=== PATIENT | female | born 1940 | race Caucasian/White ===

== ENCOUNTER 2017-05-05 05:36 | Inpatient (IN) ==
[2017-04-27 13:53] LABS: Basophils # 0.1 10*3/uL (0.0-0.2); Basophils % 0.9 % (0.0-0.8); Eosinophils # 0.2 10*3/uL (0.0-0.87); Eosinophils % 2.5 % (0.00-10.9); Hematocrit 45.6 VOL% (35.7-47.0); Hemoglobin 15.2 GM/DL (12.0-16.0); Immature Granulocytes % 0.2 %; Immature Granulocytes Absolute 0.02 #; Lymphocytes # 2.6 10*3/uL (1.4-4.0); Mean Corpuscular HGB Conc 33.3 GM/DL (32-36); Mean Corpuscular Hemoglobin 30 PG (27-34); Mean Corpuscular Volume 90.1 FL (87-102); Mean Platelet Volume 10.7 FL (9.6-12.0); Monocytes # 0.6 10*3/uL (0.11-0.8); Monocytes % 7.4 % (1.7-12.7); Platelet Count 251 T/CUMM (130-400); Red Blood Count 5.06 MC/CUMM (3.8-5.5); Red Cell Distribution Width 12.6 % (9.3-17.3); White Blood Count 8.5 T/CUMM (4-12)
[2017-04-27 14:04] LABS: Apearance,Urine CLEAR (Clear); Bilirubin,Urine Negative (Negative); Blood, Urine Negative (Negative); Glucose,Urine (UA) Negative (Negative); Ketones,Urine Negative (Negative); Nitrite,Urine Negative (Negative); Protein,Urine Negative; RBC,Urine 2 /HPF (0-4); Urine Color Yellow (Yellow); Urine Specific Gravity 1.005 (1.001-1.035); Urine Urobilinogen < 2.0 EU/DL (0.2-1.0); WBC,Urine <1 /HPF (0-6)
[2017-04-27 14:22] LABS: PT Patient Result 10.5 SECS; Partial Thromboplastin Time 27.9 SECS (0-40)
[2017-04-27 14:24] LABS: Albumin 3.9 G/DL (3.4-5.0); Bilirubin,Total 0.7 MG/DL (0.2-1.0); Calcium 10.5 MG/DL (8.5-10.1); Osmolality,Calculated 278.4 MOS/KG (273-304); Potassium 4.2 MMOL/L (3.5-5.1); Total Protein 8.1 G/DL (6.4-8.3)
--- NOTE | 2017-04-27 16:17 | XRay Report ---
XR chest 2V Date: 04/27/2017 1:08 PM History: Respiratory preoperative evaluation Comparison: None Technique: PA and lateral chest Findings: The heart is normal in size with uncoiling of the aorta. Calcified granulomata/nodes with cardiac fat pads. Unremarkable mediastinum with degenerative changes. Impression: No acute cardiopulmonary pathology identified. PROCEDURE INTERPRETED AT [facility] [place] DEPARTMENT OF RADIOLOGY Final Report Signed by: Dr. Hortencia Funez
[2017-05-05] MEDS ORDERED: CLINDAMYCIN INJ 50 ML IV ONE (05:55)
[2017-05-05] MEDS ORDERED: VANCOMYCIN 1,000 MG VIAL ONE (05:55)
[2017-05-05] MEDS ORDERED: VANCOMYCIN INJ 1,000 MG in SODIUM CHLORIDE 0.9% 250 ML IV ONE (06:00)
[2017-05-05] MEDS ORDERED: CLINDAMYCIN INJ 900 MG in PREMIX 1 EACH IV ONE (06:00)
[2017-05-05] MEDS: LACTATED RINGERS 1,000 ML IV SCH ×2 (06:20→09:40)
--- NOTE | 2017-05-05 07:07 | History and Physical Update ---
History and Physical Update - History and Physical H&P was reviewed, the patient examined and there: are no changes in the patients condition since last H&P was completed.
[2017-05-05] MEDS ORDERED: PROMETHAZINE 25 MG/1 ML VIAL IM PRN (07:11)
[2017-05-05] MEDS ORDERED: BISACODYL 10 MG SUPP RECTAL PRN (07:11)
[2017-05-05] MEDS ORDERED: TEMAZEPAM 7.5 MG CAPSULE PO PRN (07:11)
[2017-05-05] MEDS ORDERED: HYDROmorphone 2 MG/1 ML VIAL IV PRN (07:11)
[2017-05-05] MEDS ORDERED: NALOXONE 0.4 MG/ML VIAL IV PRN ×2 (07:11→09:05)
[2017-05-05] MEDS ORDERED: MAGNESIUM HYDROXIDE SUSP 30 ML UDCUP PO PRN (07:11)
[2017-05-05] MEDS ORDERED: diphenhydrAMINE CAP 25 MG CAPSULE PO PRN (07:11)
[2017-05-05] MEDS ORDERED: LACTULOSE 20 GM/30 ML UDCUP PO PRN (07:11)
[2017-05-05] MEDS ORDERED: MECLIZINE 25 MG TABLET PO PRN (07:14)
[2017-05-05] MEDS ORDERED: TRANEXAMIC ACID 1,000 MG/10 ML VIAL IV ONE (07:17)
[2017-05-05] MEDS ORDERED: HYDROmorphone PCA 30 MG/30 ML SYRINGE IV SCH (07:30)
[2017-05-05] MEDS ORDERED: ROPIVACAINE 0.5% 30 ML VIAL ONE (07:39)
[2017-05-05] MEDS ORDERED: MIDAZOLAM 2 MG/2 ML VIAL ONE (08:49)
[2017-05-05] MEDS ORDERED: ePHEDrine 50 MG/ML AMP ONE (08:50)
[2017-05-05] MEDS ORDERED: fentaNYL 100 MCG/2 ML VIAL ONE ×2 (08:50→09:27)
[2017-05-05] MEDS ORDERED: MORPHINE 10 MG/1 ML VIAL ONE (09:00)
[2017-05-05] MEDS: MORPHINE 10 MG/1 ML VIAL IV PRN ×5 (09:01→09:21)
[2017-05-05] MEDS ORDERED: MORPHINE 2 MG/1 ML SYRINGE IV PRN ×2 (09:06→09:11)
--- NOTE | 2017-05-05 09:12 | XRay Report ---
Right knee, 2 views. Indication: Postoperative from knee replacement. Surgical skin monika and drains project over the soft tissues. There has been a total knee replacement. The hardware is in good position. No evidence of acute fracture or dislocation. There are multiple sclerotic densities in a cluster, all along the medial aspect of the knee joint space. 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 PROCEDURE INTERPRETED AT [facility] [place] DEPARTMENT OF RADIOLOGY Final Report Signed by: Dr. Milena Ying
[2017-05-05] MEDS ORDERED: fentaNYL 100 MCG/2 ML VIAL IV ONE (09:25)
[2017-05-05] MEDS: MORPHINE PCA 30 MG/30 ML SYRINGE IV SCH (10:28)
[2017-05-05] MEDS: DOCUSATE SODIUM 100 MG CAPSULE PO SCH ×2 (11:07→20:04)
[2017-05-05] MEDS: IBUPROFEN 200 MG TABLET PO SCH (11:07)
[2017-05-05] MEDS: TELMISARTAN 40 MG TABLET PO SCH (11:08)
[2017-05-05] MEDS: Magnesium Oxide [Magnesium] 250 MG PO SCH (11:08)
[2017-05-05] MEDS: LATANOPROST 0.005% OPH SOLN 2.5 ML BOTTLE BOTH EYES SCH ×2 (11:08→20:05)
[2017-05-05] MEDS: [UNRECOGNIZED DRUG - OTHER] PO SCH (11:08)
--- NOTE | 2017-05-05 12:56 | Orthopedic Progress Note ---
Orthopedics - Subjective Interval history: Comfortable complaining of nausea good pulse. Discussed up in a.m. Exam - Constitutional Vitals: Period Temp Pulse Resp BP Sys/Worrell Pulse Ox Last 24 Hr 97.2 F-99.0 F 71-93 12-20 131-161/66-94 96-100 Results - Labs CBC & BMP: 04/27/17 13:40 04/27/17 13:40
[2017-05-05] MEDS: ONDANSETRON 4 MG/2 ML VIAL IV PRN ×2 (13:31→17:26)
[2017-05-05] MEDS: CLINDAMYCIN INJ 900 MG in PREMIX 1 EACH IV SCH ×2 (13:36→22:45)
--- NOTE | 2017-05-05 13:46 | Cardiology Consult Note ---
Trip Schneider Lesley, NP, am scribing for, and in the presence of, Cindy Hay MD 13:46. Assessment and Plan - Time spent with patient Time spent with patient: Greater than 30 minutes (Assessment, documentation, and plan of care) (1) Hypertension Status: Chronic Assessment and plan: SEE PLAN OF CARE LISTED BELOW Current Visit: Yes (2) Hyperlipidemia Status: Acute Assessment and plan: SEE PLAN OF CARE LISTED BELOW Current Visit: Yes (3) S/P total knee arthroplasty Status: Acute Assessment and plan: SEE PLAN OF CARE LISTED BELOW Current Visit: Yes History of Present Illness - Data of Consult Patient: known to practice within the last 3 years Consult date: 05/05/17 Requesting Physician: Silvio Avery Jr. 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 Singleton is a 76 year WF, who is status post right TKA today. She is a patient regularly followed by Dr. Zapata for hypertension and hyperlipidemia. The patient's blood pressure and heart rate appear to be well controlled. Patient denies any cardiac complaints such as chest pain or shortness of breath. She is complaining of some nausea, likely from her pain medications. We will make sure that her home medications are continued, and follow throughout hospitalization. CBC and BMP are ordered for the morning. Cardiac history includes hypertension, hyperlipidemia, grade 1 systolic heart murmur. August 2016 the patient underwent stress test, Holter monitor, and EKG. Holter monitor and EKG were negative for dysrhythmia. Stress test did reveal small muscular VSD that was felt to be long-standing and did not require treatment. ASSESSMENT/PLAN: 1. Status post right knee TKA - managed by orthopedic surgeon. 2. Hypertension - resume home medications and make adjustments as needed through hospitalization. 3. Hyperlipidemia - resume home medications and cardiac healthy diet. CC: Silvio Avery Jr., MD - Home Medications and Allergies Home Medications: Home Medications Medication Instructions Recorded Confirmed Type Gluc/Mayo-MSM#1/C/Ankur/Ru/Bor 1 each PO DAILY 04/29/17 05/05/17 History [Osteo Bi-Flex Caplet] Ibuprofen [Advil] 200 mg PO DAILY PRN 04/29/17 05/05/17 History Latanoprost [Latanoprost 0.005 % 1 drop BOTH EYES BID 04/29/17 05/05/17 History Oph Soln] Magnesium Oxide [Magnesium] 250 mg PO DAILY 04/29/17 05/05/17 History Meclizine [Antivert] 25 mg PO TID PRN 04/29/17 05/05/17 History NIFEdipine [Nifedipine ER] 30 mg PO BEDTIME 04/29/17 05/05/17 History Rosuvastatin [Crestor] 20 mg PO MOFR 04/29/17 05/05/17 History Telmisartan [Micardis] 80 mg PO DAILY 04/29/17 05/05/17 History traMADol TAB [Ultram] 50 mg PO Q6H PRN 04/29/17 05/05/17 History Allergies/Adverse Reactions: Allergies Allergy/AdvReac Type Severity Reaction Status Date / Time nebivolol [From Bystolic] Allergy Mild Unknown/Unable Verified 04/27/17 13:07 to obtain nitrofurantoin Allergy Mild Unknown/Unable Verified 04/27/17 13:07 [From Macrobid] to obtain Penicillins Allergy Mild Unknown/Unable Verified 04/27/17 13:07 to obtain Hydromorphone [From Dilaudid] AdvReac Unknown Confusion Verified 05/05/17 09:00 12 point system: reviewed and no additional remarkable complaints except as stated - Constitutional Constitutional: Absent: chills, fatigue, night sweats - EENT Nose, mouth and throat: Absent: dysphagia, headache(s) - Cardiovascular Cardiovascular: Absent: chest pain at rest, chest pain with activity, dyspnea, edema, orthopnea - Respiratory Respiratory: Absent: cough, dyspnea, wheezing - Gastrointestinal Gastrointestinal: Absent: abdominal pain, coffee ground emesis, dysphagia, heartburn - Genitourinary Genitourinary: Absent: difficulty urinating - Neurological Neurological: Absent: behavioral changes, dizziness, frequent falls - Psychiatric Psychiatric: Absent: anxiety, confusion - Endocrine Endocrine: Absent: fatigue - Hematologic/Lymphatic Hematologic/Lymphatic: Absent: easy bleeding, easy bruising Medical,Surgical,& Family Hx - Medical History Cardio: History of: Cardiac Dysrhythmia (murmur), Hypertension, Cardiovascular Problems (DR ZAPATA.) Neurology: History of: Vertigo (x1) No history of: Seizures HEENT: History of: Eye Problem (READING GLASSES), Dental Problems (LOWER DENTURE ), Glaucoma Endocrine: History of: Dyslipidemia Respiratory: No history of: Respiratory Problems (FLU VAC-NO; PNEU VAC-?) Gastrointestinal: History of: GERD (OCCASIONAL) Musculoskeletal: History of: Musculoskeletal Problems (ARTHRITIS.) - Surgical History HEENT Surgeries: Surgical HX of: Eye Surgery (MARIA D CATARACT.) Abdominal Surgeries: Surgical HX of: Appendectomy Reproductive Surgeries: Surgical HX of;: Hysterectomy Orthopedic Surgeries: Surgical HX of;: Total Knee Replacement (RIGHT 04/30) - Family History Family History: Reports;: Family Diabetes (FATHER), Family Heart Disease ( PARENTS), Family Hypertension, Family Stroke (BROTHER) - Social History Smoking Status: Never smoker Frequency of Alcohol Use: None Type of Drug Use: None Physical Examination Vital Signs Temp Pulse Resp BP Pulse Ox 97.2 F L 71 18 147/94 96 05/05/17 06:12 05/05/17 06:12 05/05/17 06:12 05/05/17 06:12 05/05/17 06:12 Exam: General: Appears well with no apparent distress. Pleasant and cooperative. Appears comfortable. HEENT: PERRL, normocephalic, atraumatic. Mucous membranes moist. No jaundice noted. Conjunctiva moist and clear, sclerae anicteric. Neck: No JVD/HJR, no thyromegaly or lymphadenopathy noted. No carotid bruit appreciated. Cardiac: Regular rate and rhythm. Systolic murmur present, no rub or gallop. PMI is nondisplaced. Lungs: Clear to auscultation without accessory muscle use to assist the respiratory pattern. Oxygen in use via nasal cannula. Abdomen: Soft, bowel sounds normoactive. Nontender and nondistended. No abdominal bruit or thrill noted. No masses noted. Musculoskeletal: No fluid collection. Decreased range of motion is noted to right lower extremity, dressing intact. Extremities: No clubbing, cyanosis noted. No edema noted. Upper extremity pulses 2+. Lower extremity pulses 2+. Capillary refill less than 3 seconds. Skin: No unusual lesions or rashes. No skin breakdown appreciated. Neuro: Awake, alert and oriented 3. Moves all extremities well without hemiparesis or paralysis. No essential tremor is appreciated. Result/EKG - Labs CBC & BMP: 04/27/17 13:40 04/27/17 13:40 Lab Results: I have reviewed the past 24 hour labs Labs: Laboratory Results - last 24 hr 05/05/17 06:08 Blood Type O POSITIVE Antibody Screen Negative - Diagnostic Findings Procedure: Chest x-ray: report reviewed by me Jennie, Cindy Hay MD, personally performed the services described in this documentation, ascribed by Maggie Dominique NP in my presence, and it is both accurate and complete .
--- NOTE | 2017-05-05 14:06 | Operative Note ---
DATE: 05/05/2017 PREOPERATIVE DIAGNOSIS: OSTEOARTHRITIS, RIGHT KNEE. POSTOPERATIVE DIAGNOSIS: SAME. OPERATIVE PROCEDURE: RIGHT TOTAL KNEE ([place]). SURGEON: Silvio Avery Jr., MD [place] PHOTOGRAPHER: Dr. Hauser. ANESTHESIA: Spinal. INDICATIONS: A 76-year-old white female with severe osteoarthritis to her right knee. She has maxim ized conservative treatment through the years including multiple injections, medications and walking aids. She presents today for elective right total knee after failing to improve with recent conserva tive treatments. OPERATIVE PROCEDURE: The patient was taken to the operating room and under spinal anesthetic, positi oned in supine position. The right leg positioned, prepped and draped in the usual sterile manner. The limb was elevated, exsanguinated, and the tourniquet inflated to 300 mmHg. She received clindamy katharina preoperatively. A midline incision was made over the anterior aspect of the right knee. Sharp d issection was carried down through skin and subcutaneous tissue. A median parapatellar arthrotomy pe rformed with the knee revealing extensive tricompartmental degenerative changes, multiple large osteo chondral loose bodies. Intramedullary alignment guides were used to make the appropriate cuts about the distal femur and proximal tibia. The femur was sized to a 5 narrow and the tibia to a 6. An 8-m m spacer selected. The patella resurfaced with a 38 button. After removal of trial components, all three components were cemented into place. After cement hardened, the wound was closed over two 1/8t h-inch Hemovac drains in a standard fashion using #1 Vicryl for the arthrotomy, 2-0 Vicryl for the nicolas bcutaneous layer, and monika for skin. The tourniquet deflated during wound closure at 41 minutes.
[2017-05-05] MEDS: FONDAPARINUX 2.5 MG/0.5 ML SYRINGE SUBCUT SCH (17:30)
[2017-05-06 05:43] LABS: Basophils % 0.4 % (0.0-0.8); Eosinophils # 0.2 10*3/uL (0.0-0.87); Eosinophils % 2.4 % (0.00-10.9); Hematocrit 34.4 VOL% (35.7-47.0); Hemoglobin 11.5 GM/DL (12.0-16.0); Immature Granulocytes % 0.6 %; Immature Granulocytes Absolute 0.06 #; Lymphocytes % 9.9 % (21.3-54.2); Mean Corpuscular HGB Conc 33.4 GM/DL (32-36); Mean Corpuscular Hemoglobin 30 PG (27-34); Mean Platelet Volume 10.5 FL (9.6-12.0); Monocytes % 9.6 % (1.7-12.7); Neutrophils # 7.6 10*3/uL (1.4-7.4); Neutrophils % 77.1 % (38.7-73.9); Platelet Count 170 T/CUMM (130-400); Red Blood Count 3.78 MC/CUMM (3.8-5.5); White Blood Count 9.9 T/CUMM (4-12)
[2017-05-06 06:08] LABS: Calcium 9.8 MG/DL (8.5-10.1); Potassium 4.7 MMOL/L (3.5-5.1)
--- NOTE | 2017-05-06 07:46 | Orthopedic Progress Note ---
Orthopedics - Subjective Interval history: Pain control fair neurovascular intact drain removed ready to start PT H&H stable. Exam - Constitutional Vitals: Period Temp Pulse Resp BP Sys/Worrell Pulse Ox Last 24 Hr 97.3 F-99.0 F 75-93 12-20 131-161/59-84 94-100 Results - Labs CBC & BMP: 05/06/17 05:28 05/06/17 05:28
[2017-05-06] MEDS: TELMISARTAN 40 MG TABLET PO SCH (08:39)
[2017-05-06] MEDS: Magnesium Oxide [Magnesium] 250 MG PO SCH (08:39)
[2017-05-06] MEDS: [UNRECOGNIZED DRUG - OTHER] PO SCH (08:40)
[2017-05-06] MEDS: LATANOPROST 0.005% OPH SOLN 2.5 ML BOTTLE BOTH EYES SCH ×2 (08:40→20:26)
[2017-05-06] MEDS: DOCUSATE SODIUM 100 MG CAPSULE PO SCH ×2 (08:41→20:26)
[2017-05-06] MEDS: IBUPROFEN 200 MG TABLET PO SCH (08:41)
[2017-05-06] MEDS: MORPHINE PCA 30 MG/30 ML SYRINGE IV SCH (08:42)
[2017-05-06] MEDS: ONDANSETRON 4 MG/2 ML VIAL IV PRN (08:43)
[2017-05-06] MEDS: FONDAPARINUX 2.5 MG/0.5 ML SYRINGE SUBCUT SCH (17:09)
--- NOTE | 2017-05-06 17:58 | Cardiology Progress Note ---
Trip Schneider Lesley, MAJO, am scribing for, and in the presence of, Cindy Hay MD 17:58. 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 Singleton is a 76 year WF, who is status post right TKA today. She is a patient regularly followed by Dr. Zapata for hypertension and hyperlipidemia. August 2016 the patient underwent stress test, Holter monitor, and EKG. Holter monitor and EKG were negative for dysrhythmia. Stress test did reveal small muscular VSD that was felt to be long-standing and did not require treatment. MAY 06, 2017 UPDATE: The patient is seen lying in bed with some complaints of discomfort about the right knee postoperatively. Vital signs reviewed and remain stable. Patient denies complaints of chest pain or shortness of breath. Labs reviewed today, H&H noted. The patient to start PT today. We will continue to follow patient ASSESSMENT/PLAN: 1. Status post right knee TKA - managed by orthopedic surgeon. 2. Hypertension - resume home medications and adjust meds as needed. Currently acceptable, will continue to follow. 3. Hyperlipidemia - resume home medications and cardiac healthy diet. Exam (Progress Note) - Constitutional Vitals: Period Temp Pulse Resp BP Sys/Worrell Pulse Ox Last 24 Hr 97.3 F-98.7 F 76-93 16-20 133-159/59-79 92-100 Exam: General: Appears well with no apparent distress. Pleasant and cooperative. Appears comfortable. HEENT: PERRL, normocephalic, atraumatic. Mucous membranes moist. No jaundice noted. Conjunctiva moist and clear, sclerae anicteric. Neck: No JVD/HJR, no thyromegaly or lymphadenopathy noted. No carotid bruit appreciated. Cardiac: Regular rate and rhythm. No murmur rub or gallop. PMI is nondisplaced. Lungs: Clear to auscultation without accessory muscle use to assist the respiratory pattern. Oxygen in use via nasal cannula. Abdomen: Soft, bowel sounds normoactive. Nontender and nondistended. No abdominal bruit or thrill noted. No masses noted. Musculoskeletal: Decreased range of motion is noted to right lower extremity, dressing intact. Extremities: No clubbing, cyanosis noted. No edema noted. Upper extremity pulses 2+. Lower extremity pulses 2+. Capillary refill less than 3 seconds. Skin: No unusual lesions or rashes. No skin breakdown appreciated. Neuro: Awake, alert and oriented 3. Moves all extremities well without hemiparesis or paralysis. No essential tremor is appreciated. Result/EKG - Labs CBC & BMP: 05/06/17 05:28 05/06/17 05:28 Lab Results: I have reviewed the past 24 hour labs Labs: Laboratory Results - last 24 hr 05/06/17 05/06/17 05:28 05:28 WBC 9.9 RBC 3.78 L Hgb 11.5 L Hct 34.4 L MCV 91.0 MCH 30 MCHC 33.4 RDW 13.0 Plt Count 170 MPV 10.5 Neut % (Auto) 77.1 H Lymph % (Auto) 9.9 L Leslie % (Auto) 9.6 Eos % (Auto) 2.4 Baso % (Auto) 0.4 Neut # (Auto) 7.6 H Lymph # (Auto) 1.0 L Leslie # (Auto) 1.0 H Eos # (Auto) 0.2 Baso # (Auto) 0.0 Immature Gran % 0.6 Nucleated RBC % 0.0 Immature Gran # 0.06 Nucleated RBCs # 0.00 Immature Plt Fraction 0.0 Sodium 136 Potassium 4.7 Chloride 102 Carbon Dioxide 29 Anion Gap 9.7 BUN 14 Creatinine 0.80 GFR Calculation 83 BUN/Creatinine Ratio 17.00 Glucose 134 H Calculated Osmolality 274.0 Calcium 9.8 Satnam Schneider Jennifer, MD, personally performed the services described in this documentation, ascribed by Maggie Dominique NP in my presence, and it is both accurate and complete [id number] .
--- NOTE | 2017-05-06 18:21 | Pathology Report from [facility] ---
[facility] [facility] [place] : [id number] PATIENT NAME : Madisyn Basurto ORDERING DR : JAMES SEVERINO JR, MD CLINICAL HX: Right knee osteoarthritis POST-OP DX: Same SPECIMEN INFO: Right knee bone and tissue GROSS DESCRIPTION: The specimen in formalin labeled MADISYN BASURTO/RIGHT KNEE consists of an aggregate soft tissue and cartilage measuring 14.0 x 6.5 cm. The articular surfaces are focally degenerative with large area of subchondral eburnation seen. Manager Cardiac tissue submitted in one cassette. DIAGNOSIS FOR MADISYN BASURTO: RIGHT KNEE, TOTAL REPLACEMENT: Bone and cartilage with reactive and degenerative repair, consistent with osteoarthritis. COLLECTED DATE: 05/05/2017 [facility] [place] [facility] [place] DATE: 05/06/2017 ELECTRONICALLY SIGNED BY: Nelly Jordan M.D. 05/06/2017 - 13:53:00 [facility]
[2017-05-07 06:29] LABS: Basophils % 0.3 % (0.0-0.8); Eosinophils # 0.2 10*3/uL (0.0-0.87); Eosinophils % 1.9 % (0.00-10.9); Hematocrit 31.9 VOL% (35.7-47.0); Hemoglobin 11.1 GM/DL (12.0-16.0); Immature Granulocytes % 0.8 %; Immature Granulocytes Absolute 0.08 #; Lymphocytes # 1.1 10*3/uL (1.4-4.0); Mean Corpuscular HGB Conc 34.8 GM/DL (32-36); Mean Corpuscular Hemoglobin 31 PG (27-34); Mean Corpuscular Volume 89.4 FL (87-102); Mean Platelet Volume 10.8 FL (9.6-12.0); Monocytes # 0.7 10*3/uL (0.11-0.8); Monocytes % 6.3 % (1.7-12.7); Neutrophils # 8.2 10*3/uL (1.4-7.4); Neutrophils % 79.7 % (38.7-73.9); Platelet Count 172 T/CUMM (130-400); Red Blood Count 3.57 MC/CUMM (3.8-5.5); Red Cell Distribution Width 12.8 % (9.3-17.3); White Blood Count 10.3 T/CUMM (4-12)
[2017-05-07] MEDS: DOCUSATE SODIUM 100 MG CAPSULE PO SCH ×2 (09:21→21:25)
[2017-05-07] MEDS: IBUPROFEN 200 MG TABLET PO SCH (09:21)
[2017-05-07] MEDS: TELMISARTAN 40 MG TABLET PO SCH (09:21)
[2017-05-07] MEDS: Magnesium Oxide [Magnesium] 250 MG PO SCH (09:22)
[2017-05-07] MEDS: LATANOPROST 0.005% OPH SOLN 2.5 ML BOTTLE BOTH EYES SCH ×2 (09:22→21:28)
[2017-05-07] MEDS: [UNRECOGNIZED DRUG - OTHER] PO SCH (09:22)
--- NOTE | 2017-05-07 13:23 | Orthopedic Progress Note ---
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
--- NOTE | 2017-05-07 18:02 | Cardiology Progress Note ---
Trip Schneider Lesley, MAJO, am scribing for, and in the presence of, Cindy Hay MD 18:02. 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 Singleton is a 76 year WF, who is status post right TKA today. She is a patient regularly followed by Dr. Zapata for hypertension and hyperlipidemia. August 2016 the patient underwent stress test, Holter monitor, and EKG. Holter monitor and EKG were negative for dysrhythmia. Stress test did reveal small muscular VSD that was felt to be long-standing and did not require treatment. MAY 07, 2017 UPDATE: Patient sitting up in chair, continues complaining of nausea. She reports she attempted to walk this morning but became extremely nauseated. Labs reviewed today, hemoglobin and hematocrit remained stable at 11 and 32 respectively. Vital signs remained stable. Oxygen continuous at 2 L by nasal cannula. Oxygen saturation 92. She has not developed any chest pain or shortness of breath. ASSESSMENT/PLAN: 1. Status post right knee TKA - managed by orthopedic surgeon. 2. Hypertension -well-controlled. 3. Hyperlipidemia - resume home medications and cardiac healthy diet. The patient reports that she will be discharged either tomorrow or the following day. We will sign off. Please reconsult for any acute cardiac changes. Exam (Progress Note) - Constitutional Vitals: Period Temp Pulse Resp BP Sys/Worrell Pulse Ox Last 24 Hr 97.0 F-99.7 F 79-92 16-20 117-145/51-61 90-95 Exam: General: Appears well with no apparent distress. Pleasant and cooperative. Appears comfortable. HEENT: PERRL, normocephalic, atraumatic. Mucous membranes moist. No jaundice noted. Conjunctiva moist and clear, sclerae anicteric. Neck: No JVD/HJR, no thyromegaly or lymphadenopathy noted. No carotid bruit appreciated. Cardiac: Regular rate and rhythm. No murmur rub or gallop. PMI is nondisplaced. Lungs: Clear to auscultation bilaterally without accessory muscle use to assist the respiratory pattern. Oxygen in use via nasal cannula. Abdomen: Soft, bowel sounds normoactive. Nontender and nondistended. No abdominal bruit or thrill noted. No masses noted. Musculoskeletal: ] Decreased range of motion is noted to right lower extremity, dressing intact. Extremities: No clubbing, cyanosis noted. No edema noted. Upper extremity pulses 2+. Lower extremity pulses 2+. Capillary refill less than 3 seconds. Skin: No unusual lesions or rashes. No skin breakdown appreciated. Neuro: Awake, alert and oriented 3. Moves all extremities well without hemiparesis or paralysis. No essential tremor is appreciated. Result/EKG - Labs CBC & BMP: 05/07/17 06:00 05/06/17 05:28 Lab Results: I have reviewed the past 24 hour labs Labs: Laboratory Results - last 24 hr 05/07/17 06:00 WBC 10.3 RBC 3.57 L Hgb 11.1 L Hct 31.9 L MCV 89.4 MCH 31 MCHC 34.8 RDW 12.8 Plt Count 172 MPV 10.8 Neut % (Auto) 79.7 H Lymph % (Auto) 11.0 L Luce % (Auto) 6.3 Eos % (Auto) 1.9 Baso % (Auto) 0.3 Neut # (Auto) 8.2 H Lymph # (Auto) 1.1 L Luce # (Auto) 0.7 Eos # (Auto) 0.2 Baso # (Auto) 0.0 Immature Gran % 0.8 Nucleated RBC % 0.0 Immature Gran # 0.08 Nucleated RBCs # 0.00 Immature Plt Fraction 0.0 Satnam Schneider Jennifer, MD, personally performed the services described in this documentation, ascribed by Maggie Dominique NP in my presence, and it is both accurate and complete 802 .
[2017-05-07] MEDS: FONDAPARINUX 2.5 MG/0.5 ML SYRINGE SUBCUT SCH (18:14)
[2017-05-08 05:51] LABS: Basophils % 0.3 % (0.0-0.8); Eosinophils # 0.4 10*3/uL (0.0-0.87); Hematocrit 31.1 VOL% (35.7-47.0); Hemoglobin 10.5 GM/DL (12.0-16.0); Immature Granulocytes % 0.5 %; Immature Granulocytes Absolute 0.04 #; Lymphocytes # 1.4 10*3/uL (1.4-4.0); Lymphocytes % 16.2 % (21.3-54.2); Mean Corpuscular HGB Conc 33.8 GM/DL (32-36); Mean Corpuscular Hemoglobin 31 PG (27-34); Mean Corpuscular Volume 91.2 FL (87-102); Mean Platelet Volume 11.3 FL (9.6-12.0); Monocytes # 0.8 10*3/uL (0.11-0.8); Monocytes % 9.5 % (1.7-12.7); Neutrophils % 68.5 % (38.7-73.9); Platelet Count 178 T/CUMM (130-400); Red Blood Count 3.41 MC/CUMM (3.8-5.5); Red Cell Distribution Width 12.9 % (9.3-17.3); White Blood Count 8.8 T/CUMM (4-12)
[2017-05-08 06:21] LABS: Calcium 9.9 MG/DL (8.5-10.1); Magnesium 2.4 MG/DL (1.8-2.4); Osmolality,Calculated 275.7 MOS/KG (273-304); Potassium 4.5 MMOL/L (3.5-5.1)
[2017-05-08] MEDS: DOCUSATE SODIUM 100 MG CAPSULE PO SCH ×2 (08:12→21:16)
[2017-05-08] MEDS: IBUPROFEN 200 MG TABLET PO SCH (08:12)
[2017-05-08] MEDS: TELMISARTAN 40 MG TABLET PO SCH (08:13)
--- NOTE | 2017-05-08 08:44 | Orthopedic Progress Note ---
Orthopedics - Subjective Interval history: Improving leg is soft nontender minimal swelling. PT progressing nicely. Discussed discharge plan possible home this afternoon or tomorrow after PT home health home PT have been set up. Instructed Exam - Constitutional Vitals: Period Temp Pulse Resp BP Sys/Worrell Pulse Ox Last 24 Hr 96.7 F-98.7 F 76-80 16-19 108-130/51-60 94-95 Results - Labs CBC & BMP: 05/08/17 04:39 05/08/17 04:39 Specialty Discharge - Follow Up or Referrals Follow up with: Silvio Avery Jr., MD [Physician] -
--- NOTE | 2017-05-08 08:47 | Discharge Summary ---
Hospital Course - Hospital Course Hospital Course: Admitted for elective right total knee discharged home with home health Diagnosis - Discharge Diagnosis (1) Osteoarthritis of right knee Status: Acute Specialty Discharge - Follow Up or Referrals Follow up with: Silvio Avery Jr., MD [Physician] - Discharge Plan - Discharge Data Disposition: Home Health Service Condition at Discharge: Stable Discharge Diet: advance to your usual diet Activity: as per physical therapy, increase activity as tolerated Hygiene: may shower, keep area(s) dry Weight Bearing at Discharge: weight bear as tolerated Driving: not for (While taking narcotics) - Discharge Medications New HYDROcodone/ACETAMIN 7.5-325 [[place] 7.5-325] 1 tablet PO Q4H PRN #30 tablet PRN Reason: Pain Moderate (4-7) Continue NIFEdipine [Nifedipine ER] 30 mg PO BEDTIME Gluc/Mayo-MSM#1/C/Ankur/Ru/Bor [Osteo Bi-Flex Caplet] 1 each PO DAILY Meclizine [Antivert] 25 mg PO TID PRN PRN Reason: Dizziness Rosuvastatin [Crestor] 20 mg PO MOFR Magnesium Oxide [Magnesium] 250 mg PO DAILY Ibuprofen [Advil] 200 mg PO DAILY PRN PRN Reason: Pain traMADol TAB [Ultram] 50 mg PO Q6H PRN PRN Reason: Pain Telmisartan [Micardis] 80 mg PO DAILY Latanoprost [Latanoprost 0.005 % Oph Soln] 1 drop BOTH EYES BID - Follow Up or Referral Follow Up: Silvio Avery Jr., MD [Physician] - - Forms/Instructions Instructions: Total Knee Replacement (DC) Additional Discharge Instructions: Discharged home with home health services. [place] for pain aspirin once daily PT per protocol weightbearing as tolerated CPM walker bedside commode. Mercedes to be removed and wound Steri-Stripped May 19. Follow-up 4 weeks Exam - Constitutional Vitals: Period Temp Pulse Resp BP Sys/[place] Pulse Ox Last 24 Hr 96.7 F-98.7 F 76-80 16-19 108-130/51-60 94-95 Discharge Results Labs on day of discharge: Labs from last 24 hours 05/08/17 05/08/17 04:39 04:39 WBC 8.8 RBC 3.41 L Hgb 10.5 L Hct 31.1 L MCV 91.2 MCH 31 MCHC 33.8 RDW 12.9 Plt Count 178 MPV 11.3 Neut % (Auto) 68.5 Lymph % (Auto) 16.2 L [place] % (Auto) 9.5 Eos % (Auto) 5.0 Baso % (Auto) 0.3 Neut # (Auto) 6.0 Lymph # (Auto) 1.4 [place] # (Auto) 0.8 Eos # (Auto) 0.4 Baso # (Auto) 0.0 Immature Gran % 0.5 Nucleated RBC % 0.0 Immature Gran # 0.04 Nucleated RBCs # 0.00 Immature Plt Fraction 0.0 Sodium 138 Potassium 4.5 Chloride 102 Carbon Dioxide 30 Anion Gap 10.5 BUN 14 Creatinine 0.80 GFR Calculation 83 BUN/Creatinine Ratio 17.00 Glucose 106 Calculated Osmolality 275.7 Calcium 9.9 Magnesium 2.4 DS: Provider Date of admission: 05/05/17 07:11 Primary care physician: Henry Zapata MD Attending physician on admission: Silvio Avery Jr., MD Consults: 05/05/17 07:11 Consult to Case Mgmt/Social Srvs [CONS] Routine Reason for Case Mgmt/Social Srvs: Rehab Home Health Equipment Consult Comment: CPM machine deliver to Pt's room before she is D/C'd home. Consult to Occupational Therapy [CONS] Routine Reason for Occupational Therapy: Evaluate and Treat Consult Comment: ADL's Consult to Physical Therapy [CONS] Routine Reason for Physical Therapy: Evaluate and Treat Gait Training 05/05/17 07:13 Consult to Physician [CONS] Routine Comment: Consulting Provider: Henry Zapata Consulting Provider Notified: Yes When should Consulting Provider be notified: Now Person Notified: [email or web address] Date Notified: 05/05/17 Time Notified: 10:05/06/17 08:08 Consult to Physical Therapy [CONS] Routine Reason for Physical Therapy: Other Consult Comment: Deliver Standard Walker to Patient's room before D/C home f/ rehab. Discharging clinician: Silvio Avery Jr., MD
[2017-05-08] MEDS ORDERED: ROSUVASTATIN 20 MG TABLET PO SCH (09:00)
[2017-05-08] MEDS: ONDANSETRON 4 MG/2 ML VIAL IV PRN (12:13)
[2017-05-08] MEDS: [UNRECOGNIZED DRUG - OTHER] PO SCH (12:18)
[2017-05-08] MEDS: Magnesium Oxide [Magnesium] 250 MG PO SCH (12:18)
[2017-05-08] MEDS: FONDAPARINUX 2.5 MG/0.5 ML SYRINGE SUBCUT SCH (17:37)
[2017-05-08] MEDS: LATANOPROST 0.005% OPH SOLN 2.5 ML BOTTLE BOTH EYES SCH ×2 (21:16→21:18)
[2017-05-09] MEDS: IBUPROFEN 200 MG TABLET PO SCH (06:42)
[2017-05-09 07:54] VITALS: BP 112/61
[2017-05-09] MEDS: LATANOPROST 0.005% OPH SOLN 2.5 ML BOTTLE BOTH EYES SCH (08:58)
[2017-05-09] MEDS: DOCUSATE SODIUM 100 MG CAPSULE PO SCH (09:01)
--- NOTE | 2017-05-09 10:05 | Orthopedic Progress Note ---
Orthopedics - Subjective Interval history: She is alert, oriented. Labs are stable. Incision looks good without erythema or significant drainage. Her discharge arrangements have been made. Rec: Ok for discharge from orthopaedic standpoint Exam - Constitutional Vitals: Period Temp Pulse Resp BP Sys/[place] Pulse Ox Last 24 Hr 96.3 F-98.8 F 73-80 16-20 105-130/53-61 92-95 Results - Labs CBC & BMP: 05/08/17 04:39 05/08/17 04:39 Specialty Discharge - Follow Up or Referrals Follow up with: Silvio Avery Jr., MD [Physician] - 06/08/17 9:00 am
[2017-05-09] MEDS: Magnesium Oxide [Magnesium] 250 MG PO SCH (10:38)
[2017-05-09] MEDS: TELMISARTAN 40 MG TABLET PO SCH (10:38)
[2017-05-09] MEDS: [UNRECOGNIZED DRUG - OTHER] PO SCH (10:39)
== END 2017-05-09 11:25 | disposition home health service (06) | DRG 470 ==
LOC: N.SDSINP 05:36 → N.3E 08:45
PROVIDERS: ADMIT Orthopaedic Surgery; ATTEND Orthopaedic Surgery

== ENCOUNTER 2017-08-22 20:54 | Inpatient (IN) ==
[~2017-08-22 20:54] MED LIST: HEPARIN 5,000 UNIT/1 ML VIAL ONE; NITROGLYCERIN 2% OINT 1 INCH/GM PACK TOP ONE; TICAGRELOR 90 MG TABLET ONE
[2017-08-22] MEDS ORDERED: ONDANSETRON 4 MG/2 ML VIAL ONE (20:55)
[2017-08-22] MEDS ORDERED: HEPARIN/NACL 0.9% 2 UNITS/ML 2,000 ML IV ONE (21:04)
[2017-08-22] MEDS ORDERED: LIDOCAINE 2%/EPI 20 ML VIAL ONE (21:04)
[2017-08-22] MEDS ORDERED: fentaNYL 100 MCG/2 ML VIAL ONE (21:22)
[2017-08-22] MEDS ORDERED: MORPHINE 10 MG/1 ML VIAL ONE (21:24)
[2017-08-22 21:25] LABS: Basophils # 0.1 10*3/uL (0.0-0.2); Basophils % 0.5 % (0.0-0.8); Eosinophils # 0.1 10*3/uL (0.0-0.87); Eosinophils % 0.6 % (0.00-10.9); Hematocrit 39.3 VOL% (35.7-47.0); Hemoglobin 13.4 GM/DL (12.0-16.0); Immature Granulocytes % 0.6 %; Lymphocytes # 3.6 10*3/uL (1.4-4.0); Lymphocytes % 22.6 % (21.3-54.2); Mean Corpuscular HGB Conc 34.1 GM/DL (32-36); Mean Corpuscular Hemoglobin 29 PG (27-34); Mean Corpuscular Volume 84.7 FL (87-102); Monocytes # 0.8 10*3/uL (0.11-0.8); Monocytes % 5.1 % (1.7-12.7); Neutrophils # 11.2 10*3/uL (1.4-7.4); Neutrophils % 70.6 % (38.7-73.9); Platelet Count 304 T/CUMM (130-400); Red Blood Count 4.64 MC/CUMM (3.8-5.5); Red Cell Distribution Width 13.6 % (9.3-17.3); White Blood Count 15.9 T/CUMM (4-12)
[2017-08-22] MEDS ORDERED: HEPARIN 5,000 UNIT/1 ML VIAL ONE (21:28)
[2017-08-22] MEDS ORDERED: TIROFIBAN 5,000 MCG/100 ML PREMIX IV ONE (21:29)
[2017-08-22 21:35] LABS: PT Patient Result 10.7 SECS; Partial Thromboplastin Time 26.9 SECS (0-40)
[2017-08-22 21:53] LABS: Alanine Aminotransferase 15 U/L (13-56); Albumin 3.5 G/DL (3.4-5.0); Alkaline Phosphatase 87 U/L (45-117); Aspartate Amino Transferase 13 U/L (0-37); Blood Urea Nitrogen 13 MG/DL (7-18); Calcium 10.3 MG/DL (8.5-10.1); Glucose 257 MG/DL (74-106); Osmolality,Calculated 281.8 MOS/KG (273-304); Potassium 4.2 MMOL/L (3.5-5.1); Sodium 137 MMOL/L (136-145); Total Protein 7.2 G/DL (6.4-8.3); Troponin I Only 0.018 NG/ML (0.00-0.045)
[2017-08-22] MEDS ORDERED: TIROFIBAN 5,000 MCG/100 ML PREMIX IV SCH (21:53)
[2017-08-22] MEDS ORDERED: METOPROLOL TARTRATE 5 MG/5 ML VIAL IV ONE (21:58)
[2017-08-22] MEDS ORDERED: NITROGLYCERIN SL 0.4 MG TABLET SL PRN (22:19)
[2017-08-22] MEDS ORDERED: fentaNYL 100 MCG/2 ML VIAL IV PRN (22:19)
[2017-08-22] MEDS ORDERED: ONDANSETRON 4 MG/2 ML VIAL IV PRN (22:19)
[2017-08-22] MEDS ORDERED: MORPHINE 2 MG/1 ML SYRINGE IV PRN (22:19)
[2017-08-22] MEDS ORDERED: SODIUM CHLORIDE 0.45% 1,000 ML IV SCH (22:30)
[2017-08-22] MEDS: METOPROLOL TARTRATE 50 MG TABLET PO SCH (23:33)
[2017-08-23 06:09] LABS: Blood Urea Nitrogen 14 MG/DL (7-18); CKMB % 13.5 %; Glucose 169 MG/DL (74-106); Osmolality,Calculated 277.8 MOS/KG (273-304); Potassium 4.8 MMOL/L (3.5-5.1); Sodium 137 MMOL/L (136-145)
[2017-08-23 06:10] LABS: Troponin I Only > 40.000 NG/ML (0.00-0.045)
[2017-08-23 06:11] LABS: Basophils % 0.1 % (0.0-0.8); Hematocrit 37.8 VOL% (35.7-47.0); Hemoglobin 12.7 GM/DL (12.0-16.0); Immature Granulocytes % 0.5 %; Immature Granulocytes Absolute 0.07 #; Lymphocytes # 0.9 10*3/uL (1.4-4.0); Lymphocytes % 6.1 % (21.3-54.2); Mean Corpuscular HGB Conc 33.6 GM/DL (32-36); Mean Corpuscular Hemoglobin 29 PG (27-34); Mean Corpuscular Volume 85.1 FL (87-102); Mean Platelet Volume 11.1 FL (9.6-12.0); Monocytes # 0.8 10*3/uL (0.11-0.8); Neutrophils # 13.3 10*3/uL (1.4-7.4); Neutrophils % 88.3 % (38.7-73.9); Platelet Count 291 T/CUMM (130-400); Red Blood Count 4.44 MC/CUMM (3.8-5.5); Red Cell Distribution Width 13.8 % (9.3-17.3); White Blood Count 15.1 T/CUMM (4-12)
[2017-08-23] MEDS ORDERED: traMADol 50 MG TABLET PO PRN (07:54)
[2017-08-23] MEDS ORDERED: LISINOPRIL 2.5 MG TABLET PO SCH (09:00)
[2017-08-23] MEDS ORDERED: Magnesium Oxide [Magnesium] 250 MG PO SCH (09:00)
[2017-08-23] MEDS: PANTOPRAZOLE 40 MG TABLET PO SCH (09:53)
[2017-08-23] MEDS: METOPROLOL TARTRATE 50 MG TABLET PO SCH ×2 (09:54→21:21)
[2017-08-23] MEDS: ASPIRIN EC 81 MG TABLET PO SCH (09:54)
[2017-08-23] MEDS: TICAGRELOR 90 MG TABLET PO SCH ×2 (09:54→21:21)
[2017-08-23] MEDS: TELMISARTAN 40 MG TABLET PO SCH (11:06)
[2017-08-23] MEDS: LATANOPROST 0.005% OPH SOLN 2.5 ML BOTTLE BOTH EYES SCH ×3 (11:06→21:21)
[2017-08-23] MEDS ORDERED: FAMOTIDINE 20 MG TABLET PO PRN (11:07)
[2017-08-23] MEDS: ROSUVASTATIN 20 MG TABLET PO SCH (21:21)
[2017-08-24] MEDS: TICAGRELOR 90 MG TABLET PO SCH (11:23)
[2017-08-24] MEDS: TELMISARTAN 40 MG TABLET PO SCH (11:36)
[2017-08-24] MEDS: METOPROLOL TARTRATE 50 MG TABLET PO SCH ×2 (11:37→21:13)
[2017-08-24] MEDS: PANTOPRAZOLE 40 MG TABLET PO SCH (11:37)
[2017-08-24] MEDS: ASPIRIN EC 81 MG TABLET PO SCH (11:37)
[2017-08-24] MEDS: LATANOPROST 0.005% OPH SOLN 2.5 ML BOTTLE BOTH EYES SCH ×2 (11:40→21:25)
[2017-08-24] MEDS ORDERED: CLOPIDOGREL 75 MG TABLET PO SCH ×2 (11:49→16:00)
[2017-08-24] MEDS: CLOPIDOGREL 75 MG TABLET PO SCH (13:31)
[2017-08-24] MEDS ORDERED: ACETAMINOPHEN 325 MG TABLET PO PRN (14:31)
[2017-08-24] MEDS ORDERED: diphenhydrAMINE CAP 25 MG CAPSULE PO PRN (14:31)
[2017-08-24] MEDS ORDERED: ZALEPLON 5 MG CAPSULE PO PRN (14:31)
[2017-08-24] MEDS ORDERED: BISACODYL 5 MG TABLET PO PRN (14:31)
[2017-08-24] MEDS ORDERED: guaiFENesin/DM ER 600-30 MG TABLET PO PRN (14:31)
[2017-08-24 15:12] LABS: Basophils # 0.1 10*3/uL (0.0-0.2); Basophils % 0.6 % (0.0-0.8); Eosinophils % 0.3 % (0.00-10.9); Hematocrit 31.8 VOL% (35.7-47.0); Hemoglobin 10.7 GM/DL (12.0-16.0); Immature Granulocytes % 0.5 %; Immature Granulocytes Absolute 0.06 #; Lymphocytes # 2.4 10*3/uL (1.4-4.0); Lymphocytes % 19.5 % (21.3-54.2); Mean Corpuscular HGB Conc 33.6 GM/DL (32-36); Mean Corpuscular Hemoglobin 29 PG (27-34); Mean Corpuscular Volume 85.9 FL (87-102); Mean Platelet Volume 10.8 FL (9.6-12.0); Monocytes # 1.2 10*3/uL (0.11-0.8); Monocytes % 10.2 % (1.7-12.7); Neutrophils # 8.3 10*3/uL (1.4-7.4); Neutrophils % 68.9 % (38.7-73.9); Platelet Count 227 T/CUMM (130-400); Red Cell Distribution Width 14.2 % (9.3-17.3); White Blood Count 12.1 T/CUMM (4-12)
[2017-08-24 15:35] LABS: Calcium 9.3 MG/DL (8.5-10.1); Magnesium 2.2 MG/DL (1.8-2.4); Osmolality,Calculated 275.7 MOS/KG (273-304); Potassium 4.3 MMOL/L (3.5-5.1)
[2017-08-24] MEDS: ROSUVASTATIN 20 MG TABLET PO SCH (21:25)
[2017-08-25 05:01] LABS: Basophils # 0.1 10*3/uL (0.0-0.2); Basophils % 0.6 % (0.0-0.8); Eosinophils # 0.1 10*3/uL (0.0-0.87); Eosinophils % 1.3 % (0.00-10.9); Hematocrit 29.1 VOL% (35.7-47.0); Hemoglobin 9.6 GM/DL (12.0-16.0); Immature Granulocytes % 0.3 %; Immature Granulocytes Absolute 0.03 #; Lymphocytes # 2.3 10*3/uL (1.4-4.0); Lymphocytes % 24.7 % (21.3-54.2); Mean Corpuscular Hemoglobin 29 PG (27-34); Mean Corpuscular Volume 87.1 FL (87-102); Mean Platelet Volume 11.2 FL (9.6-12.0); Monocytes # 0.9 10*3/uL (0.11-0.8); Neutrophils # 5.9 10*3/uL (1.4-7.4); Neutrophils % 63.1 % (38.7-73.9); Platelet Count 200 T/CUMM (130-400); Red Blood Count 3.34 MC/CUMM (3.8-5.5); Red Cell Distribution Width 14.3 % (9.3-17.3); White Blood Count 9.3 T/CUMM (4-12)
[2017-08-25 05:37] LABS: Calcium 9.2 MG/DL (8.5-10.1); Magnesium 2.3 MG/DL (1.8-2.4); Osmolality,Calculated 279.4 MOS/KG (273-304); Potassium 4.2 MMOL/L (3.5-5.1)
[2017-08-25] MEDS: CLOPIDOGREL 75 MG TABLET PO SCH (08:47)
[2017-08-25] MEDS: METOPROLOL TARTRATE 50 MG TABLET PO SCH (08:47)
[2017-08-25] MEDS: ASPIRIN EC 81 MG TABLET PO SCH (08:48)
[2017-08-25] MEDS: TELMISARTAN 40 MG TABLET PO SCH (08:48)
[2017-08-25] MEDS: PANTOPRAZOLE 40 MG TABLET PO SCH (08:48)
[2017-08-25] MEDS: LATANOPROST 0.005% OPH SOLN 2.5 ML BOTTLE BOTH EYES SCH (08:49)
[2017-08-25 12:54] VITALS: BP 103/50
== END 2017-08-25 13:18 | disposition home or self-care (01) | DRG 247 ==
LOC: N.ED 20:54 → N.CC 21:07 → N.TELEN 08-24 20:46
PROVIDERS: ADMIT Internal Medicine Interventional Cardiology; ATTEND Internal Medicine Interventional Cardiology
PROC: CLCCHCL (ICD-10-PCS; 2017-08-22 21:30)

== ENCOUNTER 2017-08-29 17:54 | Inpatient (IN) ==
[2017-08-29] MEDS ORDERED: SODIUM CHLORIDE 0.9% 500 ML IV STA (18:17)
[2017-08-29 18:46] LABS: Basophils % 0.5 % (0.0-0.8); Eosinophils # 0.1 10*3/uL (0.0-0.87); Hematocrit 29.4 VOL% (35.7-47.0); Immature Granulocytes % 0.6 %; Immature Granulocytes Absolute 0.05 #; Lymphocytes # 1.2 10*3/uL (1.4-4.0); Mean Corpuscular Hemoglobin 29 PG (27-34); Mean Corpuscular Volume 85.7 FL (87-102); Mean Platelet Volume 11.3 FL (9.6-12.0); Monocytes # 0.9 10*3/uL (0.11-0.8); Monocytes % 10.7 % (1.7-12.7); Neutrophils # 6.1 10*3/uL (1.4-7.4); Neutrophils % 73.2 % (38.7-73.9); Platelet Count 272 T/CUMM (130-400); Red Blood Count 3.43 MC/CUMM (3.8-5.5); Red Cell Distribution Width 13.9 % (9.3-17.3); White Blood Count 8.3 T/CUMM (4-12)
[2017-08-29 19:13] LABS: Albumin 2.8 G/DL (3.4-5.0); Bilirubin,Total 1.2 MG/DL (0.2-1.0); Calcium 9.5 MG/DL (8.5-10.1); Osmolality,Calculated 273.1 MOS/KG (273-304); Total Protein 6.7 G/DL (6.4-8.3)
[2017-08-29 19:15] LABS: Troponin I Only 0.666 NG/ML (0.00-0.045)
[2017-08-29 19:34] LABS: Apearance,Urine CLOUDY (Clear); Bacteria,Urine Occasional /HPF (Few); Bilirubin,Urine Negative (Negative); Blood, Urine Small mg/dL (Negative); Glucose,Urine (UA) Negative (Negative); Ketones,Urine Negative (Negative); Nitrite,Urine Negative (Negative); Protein,Urine 100 MG/DL; RBC,Urine 3 /HPF (0-4); Squamous Epithelial Cell,Urine Occasional /HPF (0-10); Urine Color Yellow (Yellow); Urine Specific Gravity 1.031 (1.001-1.035); WBC,Urine 23 /HPF (0-6)
[2017-08-29] MEDS ORDERED: DOCUSATE SODIUM 100 MG CAPSULE PO PRN (19:36)
[2017-08-29] MEDS ORDERED: MORPHINE 2 MG/1 ML SYRINGE IV PRN (19:36)
[2017-08-29] MEDS ORDERED: MAGNESIUM SULF RIDER 4 GM in PREMIX 1 EACH IV PRN (19:36)
[2017-08-29] MEDS ORDERED: ONDANSETRON 4 MG/2 ML VIAL IV PRN (19:36)
[2017-08-29] MEDS ORDERED: ZALEPLON 5 MG CAPSULE PO PRN (19:36)
[2017-08-29] MEDS ORDERED: MAGNESIUM SULF RIDER 2 GM in PREMIX 1 EACH IV PRN (19:36)
[2017-08-29] MEDS ORDERED: ROSUVASTATIN 20 MG TABLET PO SCH (22:29)
[2017-08-29] MEDS ORDERED: NITROGLYCERIN SL 0.4 MG TABLET SL PRN (22:29)
[2017-08-29] MEDS: traMADol 50 MG TABLET PO PRN (23:37)
[2017-08-29] MEDS: METOPROLOL TARTRATE 50 MG TABLET PO SCH (23:38)
[2017-08-29] MEDS: DEXTROSE 5% NACL 0.9% 1,000 ML IV SCH (23:42)
[2017-08-30 02:26] LABS: Basophils % 0.4 % (0.0-0.8); Eosinophils # 0.2 10*3/uL (0.0-0.87); Eosinophils % 2.1 % (0.00-10.9); Hematocrit 26.6 VOL% (35.7-47.0); Hemoglobin 8.9 GM/DL (12.0-16.0); Immature Granulocytes % 0.4 %; Immature Granulocytes Absolute 0.03 #; Lymphocytes # 1.6 10*3/uL (1.4-4.0); Lymphocytes % 20.6 % (21.3-54.2); Mean Corpuscular HGB Conc 33.5 GM/DL (32-36); Mean Corpuscular Hemoglobin 28 PG (27-34); Mean Corpuscular Volume 84.4 FL (87-102); Mean Platelet Volume 11.2 FL (9.6-12.0); Monocytes # 0.9 10*3/uL (0.11-0.8); Monocytes % 11.3 % (1.7-12.7); Neutrophils # 5.2 10*3/uL (1.4-7.4); Neutrophils % 65.2 % (38.7-73.9); Platelet Count 252 T/CUMM (130-400); Red Blood Count 3.15 MC/CUMM (3.8-5.5); Red Cell Distribution Width 13.8 % (9.3-17.3); White Blood Count 7.9 T/CUMM (4-12)
[2017-08-30 06:30] LABS: Hematocrit 26.8 VOL% (35.7-47.0)
[2017-08-30] MEDS: DEXTROSE 5% NACL 0.9% 1,000 ML IV SCH ×2 (07:34→10:25)
[2017-08-30] MEDS ORDERED: MAGNESIUM OXIDE 400 MG TABLET PO SCH (09:00)
[2017-08-30] MEDS: METOPROLOL TARTRATE 50 MG TABLET PO SCH (09:57)
[2017-08-30] MEDS: ASPIRIN EC 81 MG TABLET PO SCH (09:57)
[2017-08-30] MEDS: traMADol 50 MG TABLET PO PRN (10:23)
[2017-08-30] MEDS ORDERED: MAGNESIUM HYDROXIDE SUSP 30 ML UDCUP PO PRN (11:51)
[2017-08-30] MEDS ORDERED: MAGNESIUM HYDROXIDE SUSP 30 ML UDCUP PO ONE (11:51)
[2017-08-30] MEDS ORDERED: KETOROLAC 30 MG/1 ML VIAL IV ONE (12:02)
[2017-08-30] MEDS ORDERED: DIAZEPAM 5 MG TABLET PO PRN (12:02)
[2017-08-30 12:11] LABS: Hematocrit 27.4 VOL% (35.7-47.0); Hemoglobin 9.1 GM/DL (12.0-16.0)
[2017-08-30] MEDS: CLOPIDOGREL 75 MG TABLET PO SCH (13:09)
[2017-08-30] MEDS: LATANOPROST 0.005% OPH SOLN 2.5 ML BOTTLE BOTH EYES SCH (21:35)
[2017-08-30] MEDS: MAGNESIUM OXIDE 400 MG TABLET PO SCH (21:35)
[2017-08-31] MEDS: MAGNESIUM OXIDE 400 MG TABLET PO SCH ×2 (09:27→20:41)
[2017-08-31] MEDS: CLOPIDOGREL 75 MG TABLET PO SCH (09:27)
[2017-08-31] MEDS: ASPIRIN EC 81 MG TABLET PO SCH (09:27)
[2017-08-31] MEDS ORDERED: SODIUM CHLORIDE 0.9% 500 ML IV ONE (11:25)
[2017-08-31] MEDS ORDERED: ACETAMINOPHEN 325 MG TABLET PO PRN (14:12)
[2017-08-31] MEDS ORDERED: diphenhydrAMINE CAP 25 MG CAPSULE PO PRN (14:12)
[2017-08-31] MEDS ORDERED: guaiFENesin/DM ER 600-30 MG TABLET PO PRN (14:12)
[2017-08-31] MEDS: LATANOPROST 0.005% OPH SOLN 2.5 ML BOTTLE BOTH EYES SCH (15:03)
[2017-08-31] MEDS: DOCUSATE SODIUM 100 MG CAPSULE PO SCH (20:42)
[2017-08-31] MEDS ORDERED: LATANOPROST 0.005% OPH SOLN 2.5 ML BOTTLE BOTH EYES SCH (21:00)
[2017-09-01] MEDS: DOCUSATE SODIUM 100 MG CAPSULE PO SCH (08:34)
[2017-09-01] MEDS: ASPIRIN EC 81 MG TABLET PO SCH (08:34)
[2017-09-01] MEDS: MAGNESIUM OXIDE 400 MG TABLET PO SCH (08:34)
[2017-09-01] MEDS: CLOPIDOGREL 75 MG TABLET PO SCH (08:34)
[2017-09-01] MEDS ORDERED: MULTIVITAMIN (CENTRUM) TABLET PO SCH (09:00)
[2017-09-01] MEDS ORDERED: PANTOPRAZOLE 40 MG TABLET PO SCH (09:00)
[2017-09-01 12:23] LABS: Basophils % 0.4 % (0.0-0.8); Eosinophils # 0.1 10*3/uL (0.0-0.87); Eosinophils % 0.5 % (0.00-10.9); Hematocrit 27.8 VOL% (35.7-47.0); Hemoglobin 9.1 GM/DL (12.0-16.0); Immature Granulocytes % 0.5 %; Immature Granulocytes Absolute 0.05 #; Lymphocytes # 0.9 10*3/uL (1.4-4.0); Lymphocytes % 8.9 % (21.3-54.2); Mean Corpuscular HGB Conc 32.7 GM/DL (32-36); Mean Corpuscular Hemoglobin 28 PG (27-34); Mean Corpuscular Volume 85.8 FL (87-102); Monocytes # 0.7 10*3/uL (0.11-0.8); Monocytes % 7.1 % (1.7-12.7); Neutrophils # 8.5 10*3/uL (1.4-7.4); Neutrophils % 82.6 % (38.7-73.9); Platelet Count 275 T/CUMM (130-400); Red Blood Count 3.24 MC/CUMM (3.8-5.5); Red Cell Distribution Width 13.8 % (9.3-17.3); White Blood Count 10.3 T/CUMM (4-12)
[2017-09-01 13:04] LABS: Calcium 9.4 MG/DL (8.5-10.1); Magnesium 2.3 MG/DL (1.8-2.4); Osmolality,Calculated 273.8 MOS/KG (273-304); Potassium 4.5 MMOL/L (3.5-5.1)
[2017-09-01 16:20] VITALS: BP 110/57
[2017-09-01] MEDS ORDERED: FERROUS SULFATE 325 MG TABLET PO SCH (21:00)
== END 2017-09-01 17:02 | disposition home health service (06) | DRG 282 ==
LOC: N.ED 17:54 → N.EDINP 19:36 → SUPCPDRO 19:36 → N.TELES 20:15
PROVIDERS: ADMIT Internal Medicine Cardiovascular Disease; ATTEND Internal Medicine Cardiovascular Disease